=== PATIENT | female | born 1990 ===

== ENCOUNTER 2021-11-05 01:54 | Inpatient (IN) | payer OTHER ==
[~2021-11-05] VITALS: Ht 152.4 cm; Wt 2.7 kg
[2021-11-05] MEDS ORDERED: FOLIC ACID20 MG PO (02:39)
[2021-11-05] MEDS ORDERED: PRENATAL CAPLE1 EAC1 PO (02:39)
[2021-11-05] MEDS ORDERED: ECOTRIN81 MG PO (02:40)
[2021-11-05] MEDS ORDERED: PEPCID AC20 MG (13:10)
== END 2021-11-07 09:57 | disposition home or self-care (01) | DRG 788 ==
LOC: LDR 01:54 → OB/GYN 01:54
PROVIDERS: ADMIT Obstetrics & Gynecology; ATTEND Obstetrics & Gynecology
PROC: 3E033VJ Introduction of Other Hormone into Peripheral Vein, Percutaneous Approach (ICD-10-PCS; 2021-11-05)
PROC: 3E0P7VZ Introduction of Hormone into Female Reproductive, Via Natural or Artificial Opening (ICD-10-PCS; 2021-11-05)
PROC: 4A1HXCZ Monitoring of Products of Conception, Cardiac Rate, External Approach (ICD-10-PCS; 2021-11-05)
PROC: 10D00Z1 Extraction of Products of Conception, Low, Open Approach (ICD-10-PCS; principal; 2021-11-05 16:00)
DX: O61.0 Failed medical induction of labor (principal); O42.02 Full-term premature rupture of membranes, onset of labor within 24 hours of rupture; Z3A.38 38 weeks gestation of pregnancy; Z37.0 Single live birth